=== PATIENT | male | born 1955 | race Caucasian/White ===

== ENCOUNTER → 2016-07-07 | Outpatient (CLI) | payer OTHER ==
--- NOTE | 2016-07-07 09:11 | REP ---
MAXILLOFACIAL CT WITHOUT CONTRAST: HISTORY: Chronic sinusitis. Mild mucosal thickening is present in the ethmoid and left maxillary sinuses. Minimal mucosal thickening is present in the frontal, sphenoid and right maxillary sinuses. 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 Mucosal thickening involves the ostiomeatal units. The middle and inferior nasal turbinates are partially paradoxical. There is mukul bullosa of the right middle nasal turbinate. There is mild deviation of the nasal septum to the left. The nasal septum abuts the left middle and inferior nasal turbinates. The cribriform plate, medial cox of the orbits and optic canals are intact. The carotid canals form a segment of the posterolateral cox of the sphenoid sinus. Soft tissue densities are present in the nasal passage. These represent polyps. IMPRESSION: 1. Sinus mucosal thickening as described above. 2. 2 mm left ethmoid sinus osteoma. 3. There are soft tissue densities in the nasal passage representing polyps. Signed by Kris Cavazos MD 07/07/2016 09:16 A
== END ==
LOC: M RAD 08:06
PROVIDERS: ATTEND Specialist
DX: J33.0 Polyp of nasal cavity (principal); J32.4 Chronic pansinusitis; D16.4 Benign neoplasm of bones of skull and face; J34.2 Deviated nasal septum

== ENCOUNTER → 2016-09-26 | Day surgery (SDC) | payer OTHER ==
[~2016-09-26] VITALS: Ht 175.3 cm; Wt 102.1 kg
[~2016-09-26] MED LIST: DESFLURANE 240 ML INHALANT As Ordered ONE; EPINEPHrine 1MG/ML INJ 30ML MD-VIAL As Ordered ONE; GLYCOPYRROLATE INJ 0.2 MG/ML 2 ML VIAL As Ordered ONE; IBUPROFEN 800 MG TAB PO PRN; LIDOCAINE 2% INJ 100 MG/5 ML SDV (FOR ANES.) As Ordered ONE; LIDOCAINE W/EPINEPHRINE 1% 20ML VIAL As Ordered ONE; LR 1,000 ML IV ONE; LR 1,000 ML IV SCH; METHYLENE BLUE 0.5% (5MG/ML) 10 ML AMP (PROVAYBLUE)(Q9968 PER 1MG) As Ordered ONE; MIDAZOLAM INJ 2 MG/2 ML VIAL (J2250) As Ordered ONE; NEOSTIGMINE 1MG/ML 5 ML SYRINGE (J2710) As Ordered ONE; ONDANSETRON 4MG/2ML VIAL (J2405) As Ordered ONE; ONDANSETRON 4MG/2ML VIAL (J2405) IV PRN; OXYMETAZOLINE NASAL SPRAY (AFRIN) As Ordered ONE; PERCOCET 5MG/325MG TAB PO PRN; PHENYLephrine HCL 500 MCG/5 ML (100MCG/ML) SYRINGE (J2370) As Ordered ONE; PROPOFOL 200 MG/20 ML VIAL As Ordered ONE; ROCURONIUM BROMIDE 50 MG/5 ML VIAL As Ordered ONE; SIMV10TA2 PO; dexameTHASONE 4 MG/ML 1ML VIAL (J1100) As Ordered ONE; fentaNYL 100 MCG/2 ML INJECTION (J3010) IV PRN; fentaNYL 250 MCG/5 ML INJECTION (J3010) As Ordered ONE
[2016-09-26] MEDS: PERCOCET 5MG/325MG TAB PO PRN ×2 (15:30→16:21)
[2016-09-26 17:01] VITALS: BP 153/90
--- NOTE | 2016-10-01 10:14 | RO ---
DATE OF PROCEDURE: 09/30/2016 PREOPERATIVE DIAGNOSES: Chronic sinusitis. Deviated septum. POSTOPERATIVE DIAGNOSES: Chronic sinusitis. Deviated septum. PROCEDURE: Septoplasty. Bilateral endoscopic total ethmoidectomy with maxillary antrostomy. SURGEON: Bartolo Galindo MD ORTHODONTIC BAND MAKER: ANESTHESIA: INDICATIONS: This is a 61-year-old who presents with nasal obstruction found to have bilateral significant nasal polyps that obliterated the posterior nasal airway. DESCRIPTION OF PROCEDURE: Satisfactory general endotracheal anesthesia administered, pharyngeal pack placed, nose prepared for surgery by placing cotton soaked pledgets with Afrin solution in the nasal cavities bilaterally. Then 1% xylocaine with 1:100,000 epinephrine was used to inject the nasal septum. A Jh incision was made on the left side of the nose. A mucoperichondrial flap and envelope was created on the left side of the nasal septum and carried down to the junction of the bony and cartilaginous septum. This was then with an elevator, and an envelope was then created on the right side of the septum. A Torito scissors was used to make a cut high in the perpendicular plate in the midportion of the vomer, and a central segment of the bony septum was resected. Next, with the round knife on the De Witt elevator, a strip of cartilage was resected from the floor of the nose, mobilizing the quadrilateral cartilage and creating a swinging door. Then, a central segment of cartilaginous septum was resected, preserving a 1 cm dorsal and caudal strut. Double-action rongeur was used to take down deflected portions of the perpendicular plate, as well. Finally, the maxillary crest spur was taken down after elevating mucoperiosteum off both sides of it with a chisel. A segment of the resected cartilage was morselized and placed back into the septal envelope. The incision was closed using an interrupted #5-0 chromic suture. Then, a #4-0 plain suture was placed in a [id number] fashion through the two leaves of mucoperichondrium to appose them. Next, the inferior turbinates were medially infractured. A #15 blade was used to make an incision on the anterior tip of the inferior turbinate. With a De Witt elevator, a mucoperiosteal tunnel was created on the medial side of the turbinate. Then, the microdebrider with a 2.9 mm blade was inserted into the tunnel, and the underlying turbinate bone was weakened and partially resected using the microdebrider. Then, the turbinate was laterally outfractured. The posteroinferior tip of the turbinate was then cauterized with suction cautery. Finally, Moreira splints were placed into the nose and sewn to the columella with a #2-0 Prolene suture. The pharyngeal pack, which had been placed at the beginning of the procedure was removed, the throat was suctioned. After completing the septoplasty, the endoscopic surgery was started with a 0 degree telescope. The nose was prepared on the left side by injecting with 1% xylocaine with 1:100,000 epinephrine into the region of the lateral nasal wall, the polyp tissue that was grossly visible as well as the middle turbinate. First, the large polyp that was emanating from the middle meatus, which was obstructing the nose completely, was reduced by using the microdebrider. When it was reduced to a point where the landmarks of the middle meatus could be seen, scissors were used to make a cut across the stalk and a large polyp was removed. This gave excellent exposure to the lateral nasal wall. At this point, ethmoidectomy started with resection of the uncinate process with the microdebrider. The grand lamella was then perforated and resected with the microdebrider, and then working down to the grand lamella, inferiorly and medially, the posterior ethmoid cells were opened. Working posteriorly anteriorly, the lamella bone was resected following the skull base and lamina papyracea. Remnants of polyp tissue were resected along the way. In the region of the sphenoethmoid recess, the polyp tissue was identified and this was resected with the microdebrider. Then, a sphenoidotomy was created by resecting the posterior aspect of the superior turbinate opening the superior meatus into the back of the nasal cavity. Adrenaline pledgets were placed in this side of the nose while a large antrostomy was created on the left side by using the side biting forceps and through the maxillary sinus, resected the remnants of the uncinate process. Once this was done, this side of the nose was packed with adrenaline pledgets and an identical procedure was performed in the right side. Again, polyp tissue was found both in the middle meatus and in the sphenoethmoid recess and a posterior ethmoidectomy was done by rule of the ethmoid cells as well as opening a connection between the nasal cavity and the posterior ethmoids while resecting the inferior portion of the superior turbinate. Adrenaline pledgets were placed in this side of the nose for 5 minutes. When they were removed on both sides there was no significant bleeding and NasoPore packing was placed in each side of the nose. The pharyngeal packing was removed, the throat suctioned. The patient was awakened, extubated and sent to the recovery room in satisfactory condition. He will be discharged home on Percocet for pain and doxycycline 100 mg twice a day. He will be see back in the office in three days.
== END | disposition home or self-care (01) ==
LOC: M SDC 10:10
PROVIDERS: ATTEND Specialist
DX: J32.0 Chronic maxillary sinusitis (principal); J34.2 Deviated nasal septum; K50.90 Crohn's disease, unspecified, without complications
CPT/HCPCS: 30520; 31255; 31267; 88300; 88305; J1100; J2250; J2370; J2405; J2710; J3010; Q9968

== ENCOUNTER → 2022-11-25 | Day surgery (SDC) | payer MEDICARE ==
[~2022-11-25] VITALS: Ht 176.5 cm; Wt 103.5 kg
[~2022-11-25] MED LIST changes: +AMLO2.5T3 PO; -DESFLURANE 240 ML INHALANT As Ordered ONE; -EPINEPHrine 1MG/ML INJ 30ML MD-VIAL As Ordered ONE; -IBUPROFEN 800 MG TAB PO PRN; -LIDOCAINE 2% INJ 100 MG/5 ML SDV (FOR ANES.) As Ordered ONE; -LIDOCAINE W/EPINEPHRINE 1% 20ML VIAL As Ordered ONE; -LR 1,000 ML IV ONE; -LR 1,000 ML IV SCH; -METHYLENE BLUE 0.5% (5MG/ML) 10 ML AMP (PROVAYBLUE)(Q9968 PER 1MG) As Ordered ONE; -MIDAZOLAM INJ 2 MG/2 ML VIAL (J2250) As Ordered ONE; -NEOSTIGMINE 1MG/ML 5 ML SYRINGE (J2710) As Ordered ONE; +NS 1,000 ML IV ONE; -ONDANSETRON 4MG/2ML VIAL (J2405) As Ordered ONE; -ONDANSETRON 4MG/2ML VIAL (J2405) IV PRN; -OXYMETAZOLINE NASAL SPRAY (AFRIN) As Ordered ONE; -PERCOCET 5MG/325MG TAB PO PRN; -PHENYLephrine HCL 500 MCG/5 ML (100MCG/ML) SYRINGE (J2370) As Ordered ONE; -PROPOFOL 200 MG/20 ML VIAL As Ordered ONE; -ROCURONIUM BROMIDE 50 MG/5 ML VIAL As Ordered ONE; -SIMV10TA2 PO; +SIMV10TA21 PO; +THERTAB52 PO; -dexameTHASONE 4 MG/ML 1ML VIAL (J1100) As Ordered ONE; -fentaNYL 100 MCG/2 ML INJECTION (J3010) IV PRN; -fentaNYL 250 MCG/5 ML INJECTION (J3010) As Ordered ONE; +propofoL 200 MG/20 ML VIAL As Ordered ONE
[2022-11-25 09:28] VITALS: BP 164/79; O2SAT 96
== END | disposition home or self-care (01) ==
LOC: M OPP 06:32
PROVIDERS: ATTEND Internal Medicine Gastroenterology
DX: Z12.11 Encounter for screening for malignant neoplasm of colon (principal); K63.5 Polyp of colon; K64.8 Other hemorrhoids; Z79.02 Long term (current) use of antithrombotics/antiplatelets

== ENCOUNTER 2023-11-02 06:36 | Day surgery (SDC) | payer MEDICARE ==
[~2023-11-02] VITALS: Ht 175.3 cm; Wt 107.5 kg
[~2023-11-02 06:36] MED LIST changes: -GLYCOPYRROLATE INJ 0.2 MG/ML 2 ML VIAL As Ordered ONE; -NS 1,000 ML IV ONE; -propofoL 200 MG/20 ML VIAL As Ordered ONE
[2023-11-02] MEDS: CEFUROXIME 1MG/0.1ML INTRACAMERAL INJ As Ordered ONE (06:44)
[2023-11-02] MEDS ORDERED: LR 1,000 ML IV SCH (07:00)
[2023-11-02] MEDS: PHENYLEPHRINE 2.5% OPHTH SOL 2ML OD SCH (07:21)
[2023-11-02] MEDS: FLURBIPROFEN 0.03% OPHTH SOLN 2.5 ML OD SCH (07:21)
[2023-11-02] MEDS: ATROPINE SULFATE 1% OPHTH SOLN 2ML BTL OD SCH (07:21)
[2023-11-02] MEDS: TETRACAINE 0.5% OPHTH SOLN 4ML OD SCH (07:21)
[2023-11-02] MEDS ORDERED: MIDAZOLAM INJ 2MG/2ML VIAL As Ordered ONE (08:33)
[2023-11-02] MEDS: LIDOCAINE 1% SDV 5ML VIAL As Ordered ONE (08:54)
[2023-11-02] MEDS: CARBACHOL 0.01% OPHTH SOLN 1.5ML VIAL As Ordered ONE (09:18)
[2023-11-02 09:37] VITALS: BP 142/74; TEMP 97.8; O2SAT 97
== END 2023-11-02 09:55 | disposition home or self-care (01) ==
LOC: M SDC 06:36
PROVIDERS: ATTEND Ophthalmology
DX: H25.11 Age-related nuclear cataract, right eye (principal)
CPT/HCPCS: 66984; J0697; J2250; V2787

== ENCOUNTER → 2024-03-29 | Outpatient (CLI) | payer MEDICARE ==
[~2024-03-29] MED LIST changes: +PROHANCE 279.3MG/ML 15ML VIAL ONE; +PROHANCE 279.3MG/ML 5ML VIAL ONE
== END ==
LOC: M PLAIMG 14:54
PROVIDERS: ATTEND Physician Assistant
DX: C61 Malignant neoplasm of prostate (principal)
CPT/HCPCS: 72197; A9576

== ENCOUNTER → 2024-08-03 | Outpatient (CLI) | payer MEDICARE ==
[~2024-08-03] MED LIST changes: +ATOR1TAB19 PO; +PRESCAP4 PO; -PROHANCE 279.3MG/ML 15ML VIAL ONE; -PROHANCE 279.3MG/ML 5ML VIAL ONE
== END ==
LOC: M ONCR 09:15
PROVIDERS: ATTEND General Practice
DX: C61 Malignant neoplasm of prostate (principal); Z79.899 Other long term (current) drug therapy

== ENCOUNTER → 2024-09-08 | Outpatient (CLI) | payer MEDICARE ==
[~2024-09-08] VITALS: Ht 182.9 cm; Wt 109.5 kg
[~2024-09-08] MED LIST changes: +CIPR750T2 PO; +LORA1TAB23 PO
[2024-09-08 14:43] VITALS: BP 142/81; TEMP 97.7; O2SAT 98
[2024-09-08] MEDS: LIDOCAINE VISCOUS 2% SOLN 15ML UDC XX ONE (14:49)
[2024-09-08] MEDS: LIDOCAINE 2% MDV 20ML VIAL XX ONE (14:52)
[2024-09-08 15:12] VITALS: BP 150/84; TEMP 97.5; O2SAT 99
== END ==
LOC: M ONCR 13:54
PROVIDERS: ATTEND General Practice
DX: C61 Malignant neoplasm of prostate (principal)
CPT/HCPCS: 55874; 55876; A4648; C1889

== ENCOUNTER → 2024-12-23 | Outpatient (CLI) | payer MEDICARE ==
[~2024-12-23] MED LIST changes: +TAMS1CAP17 PO
== END ==
LOC: M ONCR 08:57
PROVIDERS: ATTEND General Practice
DX: C61 Malignant neoplasm of prostate (principal); R39.12 Poor urinary stream; Z92.3 Personal history of irradiation